=== PATIENT | female | born 1990 | race Caucasian/White ===

== ENCOUNTER → 2017-07-15 14:27 | Outpatient (CLI) | payer OTHER, SELFPAY | PROVIDERS: Visit Provider Specialist | DX: Z34.81 Encounter for supervision of other normal pregnancy, first trimester (principal) | CPT/HCPCS: 87086 ==

== ENCOUNTER → 2017-07-15 14:46 | Outpatient (CLI) | payer OTHER, SELFPAY ==
[2017-07-15 15:23] LABS: Add Manual Diff / Slide Review NO; Basophils Percent Auto 0.4 % (0-2); Eosinophils Percent Auto 1.6 % (2-4); Hematocrit 31.5 % (36-46); Hemoglobin 11.1 g/dL (12.0-16.0); Lymphocytes Percent Auto 26.1 % (25-40); Mean Corpuscular HGB Conc 35.3 % (30-36); Mean Corpuscular Hemoglobin 30.7 PG (26-34); Mean Corpuscular Volume 86.9 fL (80-100); Monocytes Percent Auto 8.7 % (3-14); Neutrophils Absolute Auto 4400 /uL (3000-5900); Neutrophils Percent Auto 63.2 % (50-75); Platelet Count 177 X10^3/uL (150-400); Red Blood Cell Count 3.62 X10^6/uL (4.0-5.2); Red Cell Distribution Width 13.2 % (11.6-14.8)
[2017-07-15 15:26] LABS: Appearance Urine UA CLEAR; Bilirubin Urine UA NEGATIVE (NEGATIVE); Color Urine UA YELLOW; Glucose Urine UA NEGATIVE (Normal); Ketones Urine UA NEGATIVE (NEGATIVE); Leukocyte Esterase Urine UA NEGATIVE (NEGATIVE); Nitrite Urine UA Negative (Negative); Occult Blood Urine UA NEGATIVE (Negative); Protein Urine UA NEGATIVE (Negative); Urobilinogen Urine UA 0.2 E.U./dL (0.2); pH Urine UA 7.5 (4.5-8.0)
[2017-07-15 16:53] LABS: Free T4, Direct Thyroxine 1.31 ng/dL (0.78-2.19)
[2017-07-15 17:07] LABS: Thyroid Stimulating Hormone 2.36 uIU/mL (0.47-4.68)
[2017-07-15 17:20] LABS: Hepatitis B Surface Antigen NEGATIVE s/c (NEGATIVE); Rubella Antibody IgG 29.2 IU/mL (>15)
[2017-07-15 17:28] LABS: HIV 1 and 2 Antibody NEGATIVE (NEGATIVE); Hep C Virus Ab w/Reflex Quant NEGATIVE s/c (NEGATIVE)
[2017-07-17 15:45] LABS: HSV 2 IGG AB < 0.90 index (< 0.90); HSV1IGG < 0.90 index (< 0.90)
== END ==
PROVIDERS: Visit Provider Specialist
DX: Z34.81 Encounter for supervision of other normal pregnancy, first trimester (principal)
CPT/HCPCS: 36415; 80055; 81003; 84439; 84443; 86695; 86696; 86703; 86787; 86803; 86850; 86900; 86901; 87077; 87086

== ENCOUNTER → 2017-09-10 16:54 | Outpatient (CLI) | payer OTHER, SELFPAY ==
[2017-09-15 10:12] LABS: AFP, Serum 62.6 ng/mL; Calc Gestational Age 17.6; Cigarette Smoker N; Donated Egg NOT GIVEN; Donor Egg Age NOT GIVEN; Estriol, Free 1.19 ng/mL; Inhibin A, Dimeric 255 pg/mL; Maternal Ethnicity NOT GIVEN; Maternal Weight 118 lbs; Number of Fetuses NOT GIVEN; Previous Pregnancy Down Syndro NOT GIVEN; hCG, MoM 1.38; hCG, Serum 41.3 IU/mL
== END ==
PROVIDERS: Obstetrics & Gynecology; Visit Provider Specialist
DX: R79.89 Other specified abnormal findings of blood chemistry (principal); Z3A.17 17 weeks gestation of pregnancy
CPT/HCPCS: 36415; 82105; 82677; 84702; 86336

== ENCOUNTER → 2017-10-04 14:07 | Outpatient (CLI) | payer OTHER, MEDICAID, SELFPAY ==
--- NOTE | 2017-10-04 14:08 | DI.US.S_ITS ---
PROCEDURE: US OB >= 14 WEEKS FETUS INDICATIONS: Anatomy Scan OUTSIDE/PRIOR DATING DATA: Last menstrual period (LMP): 05/10/17. LMP-based estimated date of delivery (DUNCAN): 02/14/18 First dating scan (date and location): 07/16/17. Estimated date of delivery (DUNCAN) from first dating scan: 02/13/18. TECHNIQUE: Real-time scanning was performed of the fetus, with image documentation and biometric measurements. Endovaginal scanning: No COMPARISON: [facility], , OB >= 14 WEEKS FETUS, 09/10/2017, 16:41. FINDINGS: General: A single living intrauterine gestation is present. Presentation: Vertex. Placenta: Placental position is anterior, without previa. Amniotic fluid index: 17.7 cm, normal range is 5-24 cm. heart rate: 149 beats per minute. Maternal cervical canal: 3.8 cm long. Normal lower limit is 2.5 cm. biometrics: Biparietal diameter: 22 weeks 5 days Head circumference: 22 weeks 2 days Abdominal circumference: 22 weeks 1 day Femur length: 21 weeks 3 days Estimated gestational age from initial scan: 21 weeks 1 day Composite gestational age from present scan: 21 weeks 1 day Estimated weight and percentile: 459 g; 83rd percentile Measurement variability for biometric dating: +/- 7 days from 14 weeks to 15 weeks 6 days gestation, +/- 10 days from 16 weeks to 21 weeks 6 days gestation, +/- 2 weeks from 22 weeks to 27 weeks 6 days gestation, +/- 3 weeks for 28 weeks gestation or later. weight reference: 4500 g or EFW >90/95% is considered macrosomia or large for gestational age. EFW <10% is small for gestational age. EFW 5% or less is considered intra-uterine growth restriction. Anatomic survey: Neuro: Ventricles are non-dilated at less than 10 mm. Cisterna magna is normal at 3-11 mm. Cerebellum is normal in size and morphology. Nuchal skin fold: Normal at less than 6 mm between 14-21 weeks gestational age. Face: Nose and lips, facial profile are normal. Spine: No evidence for spina bifida. Heart: 4-chambered heart is present, with normal ventricular outflow tracts. Left ventricular intracardiac focus. Diaphragm: Diaphragm is intact. Stomach: Left-sided stomach is present. Kidneys: No hydronephrosis. Normal is less than 5 mm in 2nd trimester, less than 7 mm in 3rd trimester. Cord: 3-vessel cord has orthotopic insertion. Bladder: Normal in size. Extremities: All 4 extremities identified. IMPRESSION: 1. Normal interval growth. 2. Echogenic intracardiac focus: 1.4-1.8 fold likelihood of Down syndrome. If isolated finding, consider aneuploidy screening with cell-free DNA. If aneuploidy screen is negative, no further evaluation needed. Anatomic survey otherwise normal. Dictated by: Simba BUSCH Interpreted: Nilesh Levy MD on 10/04/2017 at 15:59 Approved by: Nilesh Levy M.D. on 10/04/2017 at 17:01
== END ==
PROVIDERS: Visit Provider Specialist
DX: Z34.92 Encounter for supervision of normal pregnancy, unspecified, second trimester (principal); Z36.89 Encounter for other specified antenatal screening; Z3A.21 21 weeks gestation of pregnancy
CPT/HCPCS: 76811

== ENCOUNTER → 2017-12-15 09:57 | Outpatient (CLI) | payer OTHER, MEDICAID, SELFPAY ==
[2017-12-15 11:34] LABS: Hematocrit 29.1 % (36-46); Hemoglobin 10.4 g/dL (12.0-16.0)
[2017-12-15 12:03] LABS: GTT (PREG) 1 Hour PP 50gm Dose 81 mg/dL (76-139)
[2017-12-15 12:32] LABS: TSH w/ Reflex to FT4 3.39 uIU/mL (0.47-4.68)
== END ==
PROVIDERS: Visit Provider Specialist
DX: E03.9 Hypothyroidism, unspecified (principal); Z34.03 Encounter for supervision of normal first pregnancy, third trimester; Z3A.31 31 weeks gestation of pregnancy
CPT/HCPCS: 36415; 82950; 84443; 85014; 85018

== ENCOUNTER → 2018-01-19 09:38 | Outpatient (CLI) | payer OTHER, MEDICAID, SELFPAY ==
[2018-01-20 14:31] LABS: Strep Grp B PCR NEG for Grp B Strep
== END ==
PROVIDERS: Visit Provider Specialist
DX: Z34.83 Encounter for supervision of other normal pregnancy, third trimester (principal); Z3A.36 36 weeks gestation of pregnancy
CPT/HCPCS: 87653

== ENCOUNTER 2018-02-14 21:46 | Inpatient (IN) | payer OTHER, MEDICAID, SELFPAY ==
[2018-02-14 22:38] VITALS: BP 96/51
[2018-02-14 23:25] LABS: Add Manual Diff / Slide Review NO; Basophils Percent Auto 0.3 % (0-2); Eosinophils Percent Auto 0.7 % (2-4); Hematocrit 31.4 % (36-46); Hemoglobin 10.8 g/dL (12.0-16.0); Lymphocytes Percent Auto 21.2 % (25-40); Mean Corpuscular HGB Conc 34.4 % (30-36); Mean Corpuscular Hemoglobin 31.5 PG (26-34); Mean Corpuscular Volume 91.5 fL (80-100); Monocytes Percent Auto 9.9 % (3-14); Neutrophils Absolute Auto 6400 /uL (1500-7000); Neutrophils Percent Auto 67.9 % (50-75); Platelet Count 146 X10^3/uL (150-400); Red Blood Cell Count 3.43 X10^6/uL (4.0-5.2); Red Cell Distribution Width 13.8 % (11.6-14.8); White Blood Cell Count 9.5 X10^3/uL (4.5-11.0)
[2018-02-15] VITALS (7 sets, daily range): BP systolic 88–106; BP diastolic 50–66; PULSE 101–139; RESP 16–23; TEMP 36.6–37.7; O2SAT 99–100
--- NOTE | 2018-02-15 | PATH_ITS ---
[facility] Accession Number: [id number] . 01 Material submitted: . PLACENTA . 02 Diagnosis: Placenta, Delivery: Placenta parenchyma. Weight 429 grams. Disrupted maternal surface suggestive of possible incomplete placenta by gross examination. Infarcts present peripherally involving less than 1% of the total placental volume. No villitis identified. . Membranes Marginally inserted Mild chorioamnionitis is present. . Umbilical cord Centrally inserted. 18 cm in length. Three vessels present. Very focal mild funisitis present. MRV/02/18/2018 . 02 Electronically signed: . Joan Montesinos MD, Pathologist NPI- [id number] . 01 Gross description: . Received in formalin, labeled with the patient's name and placenta is a 429 gram, 26.0 x 12.5 x 3.0 cm irregularly shaped davis placenta. There are only a few attached membranes which are faria-yellow thickened torn and appear to insert at the margin. The umbilical cord inserts centrally, 6 cm from the nearest placental margin and is 18.0 x 1.5 cm. No lesions are present on the cord. Sectioning through the umbilical cord reveals three vessels. The surface is blue-curtis with a few small blood engorged vessels coursing over it. The maternal surface is red-brown, lobulated and disrupted. Approximately 40% of this surface is disrupted prior to this examination. No additional fragments of placenta are received in the specimen jar. Sectioning reveals curtis-faria cut surfaces with focal yellow discoloration throughout. The yellow areas are well circumscribed, are located mostly the periphery and comprise less than 1% of the total cut surfaces. They range from 0.3 cm to 0.7 cm in greatest dimension. Medical Office Clerk sections are submitted as follows: A1 - umbilical cord and membranes; A2 - section to include yellow lesion at the periphery; A3 - area of disruption. (SB:[id number]) /MRV . 02 Pathologist provided ICD-10: O41.1090 . 02 CPT . 319522 Performed at: 01 [facility] [address] [id number] MD Arvind Acosta MD Phone: [phone] Performed at: 02 [facility] [id number] [place] [id number] MD Susan Oro MD Phone: [phone]
[2018-02-15 05:24] LABS: Bacteria Urine None Seen; RBC Urine None Seen (0-5/HPF); WBC Urine None Seen (0-5/HPF)
[2018-02-15 05:25] LABS: Appearance Urine UA CLEAR; Bilirubin Urine UA NEGATIVE (NEGATIVE); Color Urine UA YELLOW; Glucose Urine UA NEGATIVE (Negative); Ketones Urine UA NEGATIVE (NEGATIVE); Leukocyte Esterase Urine UA NEGATIVE (NEGATIVE); Nitrite Urine UA NEGATIVE (Negative); Occult Blood Urine UA NEGATIVE (Negative); Protein Urine UA NEGATIVE (Negative); Specific Gravity Urine UA <=1.005 (1.000-1.035); Urobilinogen Urine UA 0.2 E.U./dL (0.2); pH Urine UA 6.5 (4.5-8.0)
[2018-02-15 05:34] LABS: Culture Indicated Urine Cult Not Indicated; Squamous Epithelial Cell Urine 0-1 /HPF
--- NOTE | 2018-02-15 06:09 | PM.OBHP.1 ---
OB HPI Date/Time Date of admission: 02/14/18 Date Patient Seen: 02/15/18 Time Patient Seen: 06:09 History of Present Condition Chief complaint: eval of labor : 2 Para: 0 Estimated Date of Delivery: 02/14/18 Estimated Gestational Age (weeks): 40 Narrative: Carley Millan is a 27 year old female admitted with spontaneous rupture membranes History of Present care: good care, initiated at week # (9), number of visits (13) and pounds weight gain (36) Dating criteria: LMP confirmed by 1st trimester US Ultrasounds: abnormal US findings Abnormal ultrasound findings: Single echogenic focus in the heart Obstetrical complications: none Medical complications: none Preadmission Labs Blood type: O (+) positive -: Antibody screen: negative, GBS status: negative, HBsAG: negative, HIV: negative, HSV 1: negative, HSV 2: negative and RPR/VDLR: negative -: Chlamydia screen: not detected and Gonorrhea screen: not detected -: Rubella: immune and Varicella: immune Quad screen: Normal 1 hr GTT: 81 Evaluation Evaluation Baseline heart rate: 130 Variability: Moderate (11-25) monitor accelerations: Present monitor decelerations: Absent Uterine Contraction Intensity: Mild Category of Tracing: I Cervical dilation (cm): 2 Cervical effacement (%): 75 station: -3 Laboratory results: Laboratory Tests 02/14/18 02/14/18 02/15/18 23:15 23:15 05:11 WBC 9.5 RBC 3.43 L Hgb 10.8 L Hct 31.4 L MCV 91.5 MCH 31.5 MCHC 34.4 RDW 13.8 Plt Count 146 L Neut % (Auto) 67.9 Lymph % (Auto) 21.2 L [place] % (Auto) 9.9 Eos % (Auto) 0.7 L Baso % (Auto) 0.3 Neut # (Auto) 6400 Urine Color Yellow Urine Appearance Clear Urine pH 6.5 Ur Specific [place] <=1.005 Urine Protein Negative Urine Glucose (UA) Negative Urine Ketones Negative Urine Occult Blood Negative Urine Nitrate Negative Urine Bilirubin Negative Urine Urobilinogen 0.2 Ur Leukocyte Esterase Negative Urine RBC None seen Urine WBC None seen Ur Squamous Epith Cells 0-1 /hpf Urine Bacteria None seen Ur Culture Indicated? Cult not indicated Micro UA Comment Not Reportable Blood Type O Positive Antibody Screen Negative Non-invasive Membranes Rupture Test: positive [facility] Social History Smoking Status: Never smoker Meds Home Medications Medication Instructions Recorded Confirmed Type cholecalciferol (vitamin D3) 1,000 1,000 unit PO DAILY 07/15/17 02/15/18 History unit capsule 1 tab PO DAILY 07/15/17 02/15/18 History vitamin,calcium,eyuyidub-oqlx-qsneo acid tablet Allergies Allergy/AdvReac Type Severity Reaction Status Date / Time No Known Drug Allergies Allergy Unverified 07/15/17 14:33 Review of Systems Review of Systems Patient denies any signs or symptoms of preeclampsia. Spontaneous rupture membranes with mild contractions. All systems reviewed & are unremarkable except as noted in HPI and below Exam Vital Signs (past 8 hours): Blood pressure 109/59, pulse of 79, temperature 36.8- 02/14/18 22:38 Blood Pressure 96/51 L Narrative Exam Narrative: HEENT exam within normal limits. Lungs are clear to auscultation and percussion. Heart is regular rate and rhythm no S3-S4 or murmurs. Abdomen is gravid. is vertex. Extremities without edema and nontender. Objective Labs Result Diagrams: 02/14/18 23:15 Labs: Laboratory Results - last 24 hr 02/14/18 02/14/18 02/15/18 23:15 23:15 05:11 WBC 9.5 RBC 3.43 L Hgb 10.8 L Hct 31.4 L MCV 91.5 MCH 31.5 MCHC 34.4 RDW 13.8 Plt Count 146 L Neut % (Auto) 67.9 Lymph % (Auto) 21.2 L [place] % (Auto) 9.9 Eos % (Auto) 0.7 L Baso % (Auto) 0.3 Neut # (Auto) 6400 Urine Color Yellow Urine Appearance Clear Urine pH 6.5 Ur Specific [place] <=1.005 Urine Protein Negative Urine Glucose (UA) Negative Urine Ketones Negative Urine Occult Blood Negative Urine Nitrate Negative Urine Bilirubin Negative Urine Urobilinogen 0.2 Ur Leukocyte Esterase Negative Urine RBC None seen Urine WBC None seen Ur Squamous Epith Cells 0-1 /hpf Urine Bacteria None seen Ur Culture Indicated? Cult not indicated Micro UA Comment Not Reportable Blood Type O Positive Antibody Screen Negative Assessment and Plan (1) 40 weeks gestation of : Current visit: Yes Status: Acute Forty week gestation with spontaneous rupture membranes not in active labor at this point. Discussed starting Pitocin the patient requests waiting another couple hours prior to starting Pitocin.
--- NOTE | 2018-02-15 06:17 | P.HPOB_ITS ---
OB HPI Date/Time Date of admission: 02/14/18 Date Patient Seen: 02/15/18 Time Patient Seen: 06:09 History of Present Condition Chief complaint: eval of labor : 2 Para: 0 Estimated Date of Delivery: 02/14/18 Estimated Gestational Age (weeks): 40 Narrative: Carley Millan is a 27 year old female admitted with spontaneous rupture membranes History of Present care: good care, initiated at week # (9), number of visits (13) and pounds weight gain (36) Dating criteria: LMP confirmed by 1st trimester US Ultrasounds: abnormal US findings Abnormal ultrasound findings: Single echogenic focus in the heart Obstetrical complications: none Medical complications: none Preadmission Labs Blood type: O (+) positive -: Antibody screen: negative, GBS status: negative, HBsAG: negative, HIV: negative, HSV 1: negative, HSV 2: negative and RPR/VDLR: negative -: Chlamydia screen: not detected and Gonorrhea screen: not detected -: Rubella: immune and Varicella: immune Quad screen: Normal 1 hr GTT: 81 Evaluation Evaluation Baseline heart rate: 130 Variability: Moderate (11-25) monitor accelerations: Present monitor decelerations: Absent Uterine Contraction Intensity: Mild Category of Tracing: I Cervical dilation (cm): 2 Cervical effacement (%): 75 station: -3 Laboratory results: Laboratory Tests 02/14/18 02/14/18 02/15/18 23:15 23:15 05:11 WBC 9.5 RBC 3.43 L Hgb 10.8 L Hct 31.4 L MCV 91.5 MCH 31.5 MCHC 34.4 RDW 13.8 Plt Count 146 L Neut % (Auto) 67.9 Lymph % (Auto) 21.2 L [place] % (Auto) 9.9 Eos % (Auto) 0.7 L Baso % (Auto) 0.3 Neut # (Auto) 6400 Urine Color Yellow Urine Appearance Clear Urine pH 6.5 Ur Specific [place] <=1.005 Urine Protein Negative Urine Glucose (UA) Negative Urine Ketones Negative Urine Occult Blood Negative Urine Nitrate Negative Urine Bilirubin Negative Urine Urobilinogen 0.2 Ur Leukocyte Esterase Negative Urine RBC None seen Urine WBC None seen Ur Squamous Epith Cells 0-1 /hpf Urine Bacteria None seen Ur Culture Indicated? Cult not indicated Micro UA Comment Not Reportable Blood Type O Positive Antibody Screen Negative Non-invasive Membranes Rupture Test: positive [facility] Social History Smoking Status: Never smoker Meds Home Medications Medication Instructions Recorded Confirmed Type cholecalciferol (vitamin D3) 1,000 1,000 unit PO DAILY 07/15/17 02/15/18 History unit capsule 1 tab PO DAILY 07/15/17 02/15/18 History vitamin,calcium,ulamdguz-sahv-tljjv acid tablet Allergies Allergy/AdvReac Type Severity Reaction Status Date / Time No Known Drug Allergies Allergy Unverified 07/15/17 14:33 Review of Systems Review of Systems Patient denies any signs or symptoms of preeclampsia. Spontaneous rupture membranes with mild contractions. All systems reviewed & are unremarkable except as noted in HPI and below Exam Vital Signs (past 8 hours): Blood pressure 109/59, pulse of 79, temperature 36.8- 02/14/18 22:38 Blood Pressure 96/51 L Narrative Exam Narrative: HEENT exam within normal limits. Lungs are clear to auscultation and percussion. Heart is regular rate and rhythm no S3-S4 or murmurs. Abdomen is gravid. is vertex. Extremities without edema and nontender. Objective Labs Result Diagrams: 02/14/18 23:15 Labs: Laboratory Results - last 24 hr 02/14/18 02/14/18 02/15/18 23:15 23:15 05:11 WBC 9.5 RBC 3.43 L Hgb 10.8 L Hct 31.4 L MCV 91.5 MCH 31.5 MCHC 34.4 RDW 13.8 Plt Count 146 L Neut % (Auto) 67.9 Lymph % (Auto) 21.2 L [place] % (Auto) 9.9 Eos % (Auto) 0.7 L Baso % (Auto) 0.3 Neut # (Auto) 6400 Urine Color Yellow Urine Appearance Clear Urine pH 6.5 Ur Specific [place] <=1.005 Urine Protein Negative Urine Glucose (UA) Negative Urine Ketones Negative Urine Occult Blood Negative Urine Nitrate Negative Urine Bilirubin Negative Urine Urobilinogen 0.2 Ur Leukocyte Esterase Negative Urine RBC None seen Urine WBC None seen Ur Squamous Epith Cells 0-1 /hpf Urine Bacteria None seen Ur Culture Indicated? Cult not indicated Micro UA Comment Not Reportable Blood Type O Positive Antibody Screen Negative Assessment and Plan (1) 40 weeks gestation of : Current visit: Yes Status: Acute Forty week gestation with spontaneous rupture membranes not in active labor at this point. Discussed starting Pitocin the patient requests waiting another couple hours prior to starting Pitocin.
[2018-02-15] MEDS: LACTATED RINGERS 1,000 ML 100 ML IV (07:59)
[2018-02-15] MEDS: OXYTOCIN PREMIX 30 UNIT/500 ML PLAST..BAG IV (08:24)
--- NOTE | 2018-02-15 18:03 | PM.OBPRVD ---
Events: Premature Rupture of Membrane Delivery date: 02/15/18 Delivery augmentation: pitocin Delivery monitor: external FHT and external uterine Route of delivery: Laceration description: Perineal - 2nd Degree (And periurethral first-degree on the right) Delivery repair: chromic (3-0 and 4-0) Anesthesia type: Local (20 cc of lidocaine) Complications: Retained placenta Narrative: Patient arrived on Labor and delivery with spontaneous rupture membranes. She did not go into active labor so Pitocin augmentation was started. She progressed to complete and pushing. Stage I heart tones category 1 stage II category 2 with variable decelerations but good variability. The patient delivered spontaneously, over an intact perineum. The male was placed on maternal abdomen. After the cord stopped pulsating the cord was clamped and cut. The periurethral to tear was repaired with 4 0 chromic. The second-degree tear was repaired with 3 0 chromic. The placenta did not deliver spontaneously. Patient was taken to the operating room for manual removal of placenta. Apgars were 8 and 9. The weight 8 lb 3 oz. Plan for aftercare: Routine care.
--- NOTE | 2018-02-15 18:15 | PM.PREOP ---
Pre-operative Note Interval Note Pre-op Check: Yes History & Physical exam performed today by Physician Changes: Yes H&P completed within 30 days and has changed as indicated here:: Vaginal delivery with retained placenta
[2018-02-15] MEDS: SODIUM CHLORIDE 0.9% 1,000 ML 1000 ML IV ×2 (18:30→19:15)
[2018-02-15] MEDS: CEFAZOLIN 2 GM/100 ML FROZ.PIGGY IV (18:30)
--- NOTE | 2018-02-15 19:14 | PM.OP.1 ---
Operative Date/Time/Diagnoses Date of procedure: 02/15/18 Time of procedure: 19:14 Pre-op diagnosis: Retained placenta Post-op diagnosis: same Procedure & Clinicians Procedure: Manual removal of placenta and uterine curettage with placement of Mark balloon, transfusion of 2 units of packed red blood cells Same procedure as scheduled: Yes Indications: Retained placenta immediately Surgeon: Kayleigh Dean Click Yes if Unassisted: Yes Anesthesia Type: General Operative Notes Findings: Retained placenta Closure Type: not applicable Specimen(s): other (Placenta) Applied: catheter (Genao) and device(s) (Mark balloon) Estimated Blood Loss (mL): 1,000 Blood products transfused: packed red blood cells (2 units) Procedure in detail: Patient was brought to the operating room where she underwent general anesthesia. She was placed in low Yellofin stirrups and prepped and draped in usual sterile fashion. A Genao catheter was placed. 2 g of Ancef were in. Warming was started. The placenta was manually removed. A ring forceps was placed on the anterior lip of the cervix and a uterine curette was placed in the uterus and the uterus carefully curetted. This did remove further retained pieces. The Mark balloon was placed and inflated with 120 cc of saline. 800 mg of Cytotec was placed rectally. 2 units of packed red blood cells were infused during the procedure. Patient went to recovery room in stable condition. Complications: none Condition: stable Disposition: other ( Center) Plan for aftercare: Monitor for bleeding and need for further blood
--- NOTE | 2018-02-15 19:27 | SUR.OPER ---
Lithotomy on padded OR bed, head on pillow, arms secured on padded arm boards at <90 degrees abduction. Legs secured in padded yellow fins stirrups.
--- NOTE | 2018-02-15 19:36 | SUR.PHASEI ---
pt arrived to pacu with tamponade balloon in uterus, acuña. tamponade balloon with bag with small amount of bloody drainage. acuña with dark yellow clear urine. iv fluids infusing wide open, pt with no pain, no nausea, taking sips of water. dr vasquez and dr terrazas at bedside frequently checking on pt. BC RN brought baby Theodore over to nurse, came as anithacaryl
--- NOTE | 2018-02-15 20:09 | SUR.PHASEI ---
Pt transferred to room 2, and left in stable condition.
[2018-02-15] MEDS: IBUPROFEN 600 MG TABLET PO (20:45)
[2018-02-15 20:54] LABS: Hematocrit 28.7 % (36-46); Hemoglobin 9.7 g/dL (12.0-16.0)
[2018-02-15] MEDS: HYDROCODONE/ACET 5/325 TABLET 2 TAB PO (20:59)
[2018-02-15] MEDS: LACTATED RINGERS 1,000 ML 125 ML IV (21:18)
[2018-02-16] MEDS: HYDROCODONE/ACET 5/325 TABLET 2 TAB PO ×2 (00:34→20:29)
[2018-02-16] MEDS: IBUPROFEN 600 MG TABLET PO ×4 (02:40→20:29)
[2018-02-16] MEDS: LACTATED RINGERS 1,000 ML 125 ML IV (05:20)
[2018-02-16 05:32] LABS: Add Manual Diff / Slide Review NO; Basophils Percent Auto 0.2 % (0-2); Hematocrit 22.1 % (36-46); Hemoglobin 7.6 g/dL (12.0-16.0); Lymphocytes Percent Auto 15.4 % (25-40); Mean Corpuscular HGB Conc 34.2 % (30-36); Mean Corpuscular Hemoglobin 30.9 PG (26-34); Mean Corpuscular Volume 90.2 fL (80-100); Monocytes Percent Auto 12.8 % (3-14); Neutrophils Absolute Auto 9900 /uL (1500-7000); Neutrophils Percent Auto 71.6 % (50-75); Platelet Count 118 X10^3/uL (150-400); Red Blood Cell Count 2.45 X10^6/uL (4.0-5.2); Red Cell Distribution Width 14.6 % (11.6-14.8); White Blood Cell Count 13.8 X10^3/uL (4.5-11.0)
[2018-02-16] MEDS: DOCUSATE 250 MG CAPSULE PO (08:15)
[2018-02-16] MEDS: FERROUS GLUCONATE 324 MG TABLET PO (12:25)
--- NOTE | 2018-02-16 16:50 | P.PNOB_ITS ---
Subjective - OB Interval history: day #1 Status post manual removal of placenta and placement of Mark balloon. Patient comments: no complaints [place] baby status: nursing well feeding status: exclusively breast feeding Narrative: Patient is doing well day #1. She denies any signs or symptoms of preeclampsia. Her pain is under control. Her is going well. She has no nausea. Date Patient Seen: 02/16/18 Time Patient Seen: 16:48 Exam Vital Signs (past 8 hours): Blood pressure 102/66, pulse of 108, temperature 99? Oxygen Delivery Method Room Air Narrative Exam Narrative: Patient's abdomen is soft, nontender. Uterus is firm, at U, nontender. Over the last 8 hrs the Mark balloon was slowly deflated with no increase in her bleeding and so was finally removed. Patient's vulva is quite edematous. Objective Labs Result Diagrams: 02/16/18 05:00 Labs: Laboratory Results - last 24 hr 02/14/18 02/15/18 02/16/18 23:15 08:48 05:00 WBC 13.8 H RBC 2.45 L Hgb 9.7 L 7.6 L Hct 28.7 L 22.1 L MCV 90.2 MCH 30.9 MCHC 34.2 RDW 14.6 Plt Count 118 L Neut % (Auto) 71.6 Lymph % (Auto) 15.4 L [place] % (Auto) 12.8 Eos % (Auto) 0.0 L Baso % (Auto) 0.2 Neut # (Auto) 9900 H Blood Type O Positive Antibody Screen Negative Crossmatch See Detail Assessment & Plan (1) 40 weeks gestation of : Status: Acute Current Visit: Yes (2) Vaginal delivery: Status: Acute Current Visit: Yes (3) Retained placenta with hemorrhage, condition: Problem details: Will monitor for bleeding after removal of Mark balloon. Otherwise routine care. Status: Acute Current Visit: Yes Time Spent With Patient Total time spent is greater than 50% in coordination of care (as documented) at patient's floor/unit and/or counseling patient: less than 15 minutes
[2018-02-16] MEDS: MINERAL OIL EMULSIFIED 30 ML PO (20:30)
[2018-02-16] MEDS: LANOLIN OINT 7 GM 1 APPLIC TOP (22:43)
[2018-02-17] MEDS: IBUPROFEN 600 MG TABLET PO ×2 (04:12→12:09)
--- NOTE | 2018-02-17 08:49 | PM.OBDS.1 ---
Discharge Providers Date of admission: 02/14/18 21:46 Consults: 02/15/18 20:26 Consult to Drug Worker Routine Comment: 02/14/18 22:39 Consult to Anesthesiology Urgent Comment: Consulting Provider: Anesthesiologist Reason for consultation: Epidural Has provider been notified: No Discharge provider: Kayleigh Dean MD Discharge Date: 02/17/18 Summary Date Patient Seen: 02/17/18 Time Patient Seen: 08:50 Hospital Course: Patient arrived on Labor and delivery with spontaneous rupture membranes but not in active labor. She eventually was started on Pitocin augmentation. She progressed normally and had a spontaneous vaginal delivery. She had a second-degree vaginal and a first-degree periurethral tear that was repaired. She had a retained placenta that required manual removal and curettage in the operating room with hemorrhage. She received 2 units of packed red blood cells in the operating room. A Mark balloon was placed. Both and mother did well . Viable male weighing 8 lb 3 oz. The balloon was deflated slowly over the next day and then removed. She did not have any problems with bleeding after removal of the balloon. She was urinating well and ambulatory. Tolerating regular diet and passing gas. Patient is O-positive and rubella immune. Peripartum Data Delivery Method: Natural Vaginal Laceration description: Vaginal - 2nd Degree Procedures: Vaginal delivery, repair of second-degree vaginal tear and first-degree periurethral tear, manual removal of placenta with curettage and placement of Mark balloon, transfusion 2 units of packed red blood cells complications: transfusion (2 units) and retained placenta [place] 1: Gender: Male Disposition of : home Discharge Diagnosis (1) 40 weeks gestation of : Status: Acute (2) Vaginal delivery: Status: Acute (3) Retained placenta with hemorrhage, condition: Status: Acute Problem Details: Will monitor for bleeding after removal of Mark balloon. Otherwise routine care. Status at Discharge Functional status at discharge: independent ambulation Overall status at discharge: patient is progressing back to baseline Time Spent with Patient Total time spent providing and/or coordinating discharge services: Less than 30 minutes Objective Labs Result Diagrams: 02/16/18 05:00 Discharge Plan Discharge Plan Patient Disposition: Home Discharge Med Rec/Prescriptions Prescriptions: New hydrocodone-acetaminophen 5-325 mg Tablet 2 tab PO Q4HR Qty: 20 RF: 0 ibuprofen 600 mg Tablet 600 mg PO Q6HR PRN (Reason: Pain, Mild (1-3)) Qty: 30 RF: 0 docusate sodium 250 mg Capsule 250 mg PO DAILY Qty: 20 RF: 0 ferrous gluconate 324 mg (38 mg iron) Tablet 324 mg PO BID Qty: 60 RF: 1 Continue cholecalciferol (vitamin D3) 1,000 unit capsule 1,000 unit PO DAILY RF: 0 prenat.vits,heri,jrm-sknm-sqjoe [ Vitamin] tablet 1 tab PO DAILY RF: 0 Follow up/Referrals: Kayleigh Dean MD [Physician] - 1 Month ( exam) Provider Discharge Instructions Diet: Regular Activity: Nothing in vagina for 4 weeks Skin/Wound/Dressing Care Report to your healthcare provider any signs of infection, such as:: chills, fever and increased pain Discharge Data Attending Provider: Kayleigh Dean Admit Date/Time: 02/14/18 21:46
--- NOTE | 2018-02-17 08:54 | P.DS_ITS ---
Discharge Providers Date of admission: 02/14/18 21:46 Consults: 02/15/18 20:26 Consult to Finance Business Manager Routine Comment: 02/14/18 22:39 Consult to Anesthesiology Urgent Comment: Consulting Provider: Anesthesiologist Reason for consultation: Epidural Has provider been notified: No Discharge provider: Kayleigh Dean MD Discharge Date: 02/17/18 Summary Date Patient Seen: 02/17/18 Time Patient Seen: 08:50 Hospital Course: Patient arrived on Labor and delivery with spontaneous rupture membranes but not in active labor. She eventually was started on Pitocin augmentation. She progressed normally and had a spontaneous vaginal delivery. She had a second- degree vaginal and a first-degree periurethral tear that was repaired. She had a retained placenta that required manual removal and curettage in the operating room with hemorrhage. She received 2 units of packed red blood cells in the operating room. A Mark balloon was placed. Both and mother did well . Viable male infant weighing 8 lb 3 oz. The balloon was deflated slowly over the next day and then removed. She did not have any problems with bleeding after removal of the balloon. She was urinating well and ambulatory. Tolerating regular diet and passing gas. Patient is O-positive and rubella immune. Peripartum Data Infant Delivery Method: Natural Vaginal Laceration description: Vaginal - 2nd Degree Procedures: Vaginal delivery, repair of second-degree vaginal tear and first- degree periurethral tear, manual removal of placenta with curettage and placement of Mark balloon, transfusion 2 units of packed red blood cells complications: transfusion (2 units) and retained placenta 1: Gender: Male Disposition of : home Discharge Diagnosis (1) 40 weeks gestation of : Status: Acute (2) Vaginal delivery: Status: Acute (3) Retained placenta with hemorrhage, condition: Status: Acute Problem Details: Will monitor for bleeding after removal of Mark balloon. Otherwise routine care. Status at Discharge Functional status at discharge: independent ambulation Overall status at discharge: patient is progressing back to baseline Time Spent with Patient Total time spent providing and/or coordinating discharge services: Less than 30 minutes Objective Labs Result Diagrams: 02/16/18 05:00 Discharge Plan Discharge Plan Patient Disposition: Home Discharge Med Rec/Prescriptions Prescriptions: New hydrocodone-acetaminophen 5-325 mg Tablet 2 tab PO Q4HR Qty: 20 RF: 0 ibuprofen 600 mg Tablet 600 mg PO Q6HR PRN (Reason: Pain, Mild (1-3)) Qty: 30 RF: 0 docusate sodium 250 mg Capsule 250 mg PO DAILY Qty: 20 RF: 0 ferrous gluconate 324 mg (38 mg iron) Tablet 324 mg PO BID Qty: 60 RF: 1 Continue cholecalciferol (vitamin D3) 1,000 unit capsule 1,000 unit PO DAILY RF: 0 prenat.vits,heri,ami-bgct-ewgci [ Vitamin] tablet 1 tab PO DAILY RF: 0 Follow up/Referrals: Kayleigh Dean MD [Physician] - 1 Month ( exam) Provider Discharge Instructions Diet: Regular Activity: Nothing in vagina for 4 weeks Skin/Wound/Dressing Care Report to your healthcare provider any signs of infection, such as:: chills, fever and increased pain Discharge Data Attending Provider: Kayleigh Dean Admit Date/Time: 02/14/18 21:46
[2018-02-17] MEDS: FERROUS GLUCONATE 324 MG TABLET PO (09:25)
[2018-02-17] MEDS: DOCUSATE 250 MG CAPSULE PO (09:25)
[2018-02-17 10:49] VITALS: BP 105/62; PULSE 97; RESP 18; TEMP 37.1
== END 2018-02-17 19:30 | disposition home or self-care (01) | DRG 542 ==
PROVIDERS: Admitting Provider Specialist; Visit Provider Specialist
PROC: (CPT 58120; principal; 2018-02-15 18:30)
DX: O42.02 Full-term premature rupture of membranes, onset of labor within 24 hours of rupture (principal); Z3A.40 40 weeks gestation of pregnancy; Z37.0 Single live birth; O70.1 Second degree perineal laceration during delivery; O72.0 Third-stage hemorrhage
CPT/HCPCS: 36415; 36430; 59050; 59160; 59409; 59899; 81001; 84112; 85014; 85018; 85025; 86850; 86900; 86901; 88307; P9016; G0379; J0330; J0690; J2590; J2704; J3010

== ENCOUNTER → 2018-03-04 12:01 | Outpatient (CLI) | payer OTHER, MEDICAID, SELFPAY ==
[2018-03-04 12:49] LABS: Hematocrit 32.4 % (36-46); Hemoglobin 10.7 g/dL (12.0-16.0)
== END ==
PROVIDERS: Visit Provider Family Medicine
DX: O72.1 Other immediate postpartum hemorrhage (principal)
CPT/HCPCS: 85014; 85018